=== PATIENT | male | born 1945 | race Caucasian/White ===

== ENCOUNTER 2021-03-05 08:39 | Day surgery (SDC) | payer MEDICARE, BC ==
[2021-02-26 14:16] LABS: BASOPHILS # (AUTO) 0.1 X10'3 (0-0.2); BASOPHILS % (AUTO) 0.5 % (0-1); EOSINOPHILS % (AUTO) 0.4 % (0-6); LYMPHOCYTES # (AUTO) 1.2 X10'3 (1.1-4.8); LYMPHOCYTES % (AUTO) 12.3 % (21-51); MEAN CORPUSCULAR HEMOGLOBIN 30.1 PG (27.0-31.0); MEAN CORPUSCULAR HGB CONC 33.7 g/dL (33.0-36.5); MEAN CORPUSCULAR VOLUME 89.5 FL (78-98); MEAN PLATELET VOLUME 7.6 FL (7.4-10.4); MONOCYTES # (AUTO) 0.5 X10'3 (0-0.9); MONOCYTES % (AUTO) 4.9 % (2-12); NEUTROPHILS # (AUTO) 7.9 X10'3 (1.8-7.7); NEUTROPHILS % (AUTO) 81.9 % (42-75); PRE OP HEMOGLOBIN 14.5 g/dL (14.0-17.9); PRE OP PLATELET COUNT 223 X10'3 (140-440); RED CELL DISTRIBUTION WIDTH 13.7 % (11.5-14.5)
[2021-02-26 14:32] LABS: ALBUMIN 4.2 G/DL (3.4-5.0); ALBUMIN/GLOBULIN RATIO 1.8 (1.1-1.5); ALKALINE PHOSPHATASE 70 IU/L (46-116); BLOOD UREA NITROGEN 14 MG/DL (7-18); BUN/CREATININE RATIO 16.5 (5.4-32.0); CHLORIDE 106 MMOL/L (99-107); CREATININE 0.85 MG/DL (0.60-1.10); PRE OP ALT 16 U/L (30-65); PRE OP ANION GAP 9 (8-16); PRE OP AST 15 U/L (10-37); PRE OP BILIRUB, TOTAL 0.9 MG/DL (0.0-1.0); PRE OP GLUCOSE 82 MG/DL (70-104); PRE OP POTASSIUM 4.1 MMOL/L (3.4-5.1); PRE OP SODIUM 142 MMOL/L (135-145); TOTAL CARBON DIOXIDE 26.8 MMOL/L (24-32); TOTAL PROTEIN 6.5 G/DL (6.4-8.2); eGFR 88 ML/MIN
[~2021-03-05] VITALS: Ht 182.9 cm; Wt 91.7 kg
[2021-03-05] VITALS (8 sets, daily range): BP systolic 110–139; BP diastolic 66–84
[2021-03-05] MEDS: ringers solution, lacted 1,000 ML IV SCH ×2 (05:00→09:10)
[~2021-03-05 08:39] MED LIST: ASPI-1071 PO; BUPIVAcaine/PF 2.5mg/ml (0.25%) 10ml vial ONE; FLEC50TA PO; LACT1CAP65 PO; LIDOcaine 1% 30ml preserv. free vial ONE; MAGN100T5 PO; METO-395 PO; cefazolin/dext.iso 2gm/100ml IV ONE; famotidine 20mg tablet PO ONE
[2021-03-05] MEDS ORDERED: ASPI-1264 PO (09:03)
[2021-03-05] MEDS ORDERED: LIDOcaine 1% 30ml preserv. free vial ONE (14:05)
[2021-03-05] MEDS ORDERED: BUPIVAcaine 0.5% inj/PF 30 ML ONE (14:05)
[2021-03-05] MEDS ORDERED: acetaminophen 1000 MG/100ml vial IV ONE (14:49)
[2021-03-05] MEDS ORDERED: sevoflurane 250ml liquid IH ONE (14:49)
[2021-03-05] MEDS ORDERED: fentaNYL/PF 50MCG/1 ML 2ML syringe ONE (14:54)
[2021-03-05] MEDS ORDERED: glycopyrrolate 0.2mg/ml inj ONE (15:14)
[2021-03-05] MEDS ORDERED: neostigmine methylsulfate 1 MG/ML 10ml vial ONE (15:14)
[2021-03-05] MEDS ORDERED: LIDOcaine 2% (20mg/ml) 5ml vial ONE (15:14)
[2021-03-05] MEDS ORDERED: propofol inj 20 ML IV ONE (15:14)
[2021-03-05] MEDS ORDERED: dexamethasone sod phosphate 4mg/ml inj. ONE (15:14)
[2021-03-05] MEDS ORDERED: ondansetron/PF 4mg/2ml inj ONE (15:14)
[2021-03-05] MEDS ORDERED: rocuronium 10mg/ml inj IV ONE (15:14)
--- NOTE | 2021-03-05 15:58 | NUR ---
Received from OR via , accompanied by Anesthesiologist DR PEDROZA and report given by Anesthesiolgist. AWAKENS TO VOICE. VITALS STABLE. DRESSINGS DI. CARLEEN PAIN. ABD SOFT.
[2021-03-05] MEDS ORDERED: HYDROcodone/acetaminophen 5mg/325mg tablet PO PRN (16:10)
[2021-03-05] MEDS ORDERED: ondansetron/PF 4mg/2ml inj IV PRN (16:15)
[2021-03-05] MEDS ORDERED: morphine 2 MG/ML inj. syringe IV PRN (16:15)
[2021-03-05] MEDS ORDERED: HYDROmorphone/PF 0.2 MG/ML SYRINGE IV PRN ×2 (16:15)
[2021-03-05] MEDS ORDERED: ringers solution, lacted 1,000 ML IV SCH (16:15)
[2021-03-05] MEDS ORDERED: LIDOcaine 2% 10ml TOPICAL JELLY (Urojet) MM ONE (18:20)
--- NOTE | 2021-03-05 18:30 | NUR ---
16 FR TA PLACED WITHOUT DIFFICULTY. CLEAR URINE RETURN. BALOON INFLATED WITH 10CC STERIL WATER.
--- NOTE | 2021-03-05 18:58 | NUR ---
AWAKE AND ORIENTED. VITALS STABLE. DRESSINGS DI. CARLEEN PAIN. HOME WITH HIS AT THIS TIME.
== END 2021-03-05 18:58 | disposition home or self-care (01) ==
LOC: PAS 08:39
PROVIDERS: ATTEND Surgery
DX: K40.90 Unilateral inguinal hernia, without obstruction or gangrene, not specified as recurrent (principal); I48.91 Unspecified atrial fibrillation; Z79.82 Long term (current) use of aspirin; Z87.891 Personal history of nicotine dependence; Z79.899 Other long term (current) drug therapy; Z20.822 Contact with and (suspected) exposure to COVID-19; Z98.890 Other specified postprocedural states; Z85.828 Personal history of other malignant neoplasm of skin
CPT/HCPCS: 36415; 49650; 80053; 82948; 85025; C1781; J0131; J1100; J2001; J2405; J2704; J2710; J3010; J3490; U0003; U0005; Z7506; Z7508; Z7512; A4215; A4618; J7120

== ENCOUNTER 2021-11-07 08:57 | Day surgery (SDC) | payer MEDICARE, BC ==
[2021-10-31 10:53] LABS: BASOPHILS % (AUTO) 0.4 % (0-1); EOSINOPHILS % (AUTO) 0.6 % (0-6); LYMPHOCYTES # (AUTO) 1.5 X10'3 (1.1-4.8); LYMPHOCYTES % (AUTO) 17.5 % (21-51); MEAN CORPUSCULAR HEMOGLOBIN 30.1 PG (27.0-31.0); MEAN CORPUSCULAR HGB CONC 33.8 g/dL (33.0-36.5); MEAN CORPUSCULAR VOLUME 89.1 FL (78-98); MEAN PLATELET VOLUME 7.8 FL (7.4-10.4); MONOCYTES # (AUTO) 0.5 X10'3 (0-0.9); MONOCYTES % (AUTO) 5.7 % (2-12); NEUTROPHILS # (AUTO) 6.3 X10'3 (1.8-7.7); NEUTROPHILS % (AUTO) 75.8 % (42-75); PRE OP HEMATOCRIT 43.8 % (42.0-52.0); PRE OP HEMOGLOBIN 14.8 g/dL (14.0-17.9); PRE OP PLATELET COUNT 214 X10'3 (140-440); RED BLOOD COUNT 4.92 X10'6 (4.70-6.10); RED CELL DISTRIBUTION WIDTH 13.8 % (11.5-14.5)
[2021-10-31 11:09] LABS: ALBUMIN 4.2 G/DL (3.4-5.0); ALBUMIN/GLOBULIN RATIO 1.6 (1.1-1.5); ALKALINE PHOSPHATASE 61 IU/L (46-116); BLOOD UREA NITROGEN 16 MG/DL (7-18); BUN/CREATININE RATIO 17.6 (5.4-32.0); CALCIUM 8.8 MG/DL (8.5-10.1); CHLORIDE 104 MMOL/L (99-107); CREATININE 0.91 MG/DL (0.60-1.10); PRE OP ALT 17 U/L (30-65); PRE OP ANION GAP 5 (8-16); PRE OP AST 15 U/L (10-37); PRE OP BILIRUB, TOTAL 1.1 MG/DL (0.0-1.0); PRE OP GLUCOSE 86 MG/DL (70-104); PRE OP POTASSIUM 4.8 MMOL/L (3.4-5.1); PRE OP SODIUM 139 MMOL/L (135-145); TOTAL CARBON DIOXIDE 29.6 MMOL/L (24-32); TOTAL PROTEIN 6.9 G/DL (6.4-8.2); eGFR 81 ML/MIN
[~2021-11-07] VITALS: Ht 182.9 cm; Wt 94.5 kg
[2021-11-07] VITALS (13 sets, daily range): BP systolic 97–156; BP diastolic 62–90
[~2021-11-07 08:57] MED LIST changes: -ASPI-1071 PO; +BUPIVAcaine 0.5% inj/PF 0 ML ONE; -BUPIVAcaine/PF 2.5mg/ml (0.25%) 10ml vial ONE; -FLEC50TA PO; +IBUP-1984 PO; -METO-395 PO; +ceFAZolin inj. 2,000 MG in dextrose 5%-water 100 ML IV ONE; -cefazolin/dext.iso 2gm/100ml IV ONE; +ringers solution, lacted 1,000 ML IV SCH
[2021-11-07] MEDS ORDERED: BUPIVAcaine 0.5% inj/PF 30 ML ONE ×3 (10:14→10:54)
[2021-11-07] MEDS ORDERED: LIDOcaine 1% 30ml preserv. free vial ONE (10:14)
[2021-11-07] MEDS ORDERED: ringers solution, lacted 1,000 ML IV SCH (10:50)
[2021-11-07] MEDS ORDERED: morphine 4 MG/ML inj SYRINge IV PRN (10:50)
[2021-11-07] MEDS ORDERED: morphine 2 MG/ML inj. syringe IV PRN (10:50)
[2021-11-07] MEDS ORDERED: fentaNYL/PF 50MCG/1 ML 2ML syringe IV PRN ×2 (10:50)
[2021-11-07] MEDS ORDERED: ondansetron/PF 4mg/2ml inj IV PRN (10:50)
[2021-11-07] MEDS ORDERED: hydrALAZINE 20mg/ml inj. IV PRN (10:50)
[2021-11-07] MEDS ORDERED: labetalol 20mg/4ml (5mg/ml) syringe IV PRN (10:50)
[2021-11-07] MEDS ORDERED: glycopyrrolate 0.2mg/ml inj ONE (10:55)
[2021-11-07] MEDS ORDERED: neostigmine methylsulfate 1 MG/ML 10ml vial ONE (10:55)
[2021-11-07] MEDS ORDERED: dexamethasone sod phosphate 10mg/ml inj ONE (10:55)
[2021-11-07] MEDS ORDERED: sevoflurane 250ml liquid IH ONE (10:55)
[2021-11-07] MEDS ORDERED: midazolam 1 mg/ML 2ml injection ONE (11:00)
[2021-11-07] MEDS ORDERED: fentaNYL/PF 50MCG/1 ML 2ML syringe ONE (11:00)
[2021-11-07] MEDS ORDERED: propofol inj 20 ML IV ONE (11:01)
[2021-11-07] MEDS ORDERED: LIDOcaine 2% (20mg/ml) 5ml vial ONE (11:01)
[2021-11-07] MEDS ORDERED: ondansetron/PF 4mg/2ml inj ONE (11:01)
[2021-11-07] MEDS ORDERED: rocuronium 10mg/ml inj IV ONE (11:01)
[2021-11-07] MEDS ORDERED: BUPIVAcaine 0.5% inj/PF 30 ml vial IJ ONE (11:16)
--- NOTE | 2021-11-07 12:05 | NUR ---
Received from OR via [facility] , accompanied by Anesthesiologist RAMSES and report given by Anesthesiolgist. 3 ABODOMINAL BANDAGES,CDI, STATES PAIN IS 2/10 ABDOMEN, 10 lITER MASK, SATS 100%, VITAL SIGNS STABLE, 20G PIV STEVE ACE LR AT 200 Addendum: 11/07/21 at 1223 by Thuan Diaz RN, RN Amended: Links added.
[2021-11-07] MEDS ORDERED: HYDROcodone/acetaminophen 5mg/325mg tablet PO PRN (12:15)
--- NOTE | 2021-11-07 13:10 | NUR ---
VOIDED. 210 RESIDUAL VOLUME VIA BLADDER SCAN. Addendum: 11/07/21 at 1346 by Thuan Diaz RN, RN Amended: Links added.
--- NOTE | 2021-11-07 14:11 | NUR ---
ALL DISCHARGE CRITERIA HAS BEEN MET. VSS, PAIN AT A TOLERABLE LEVEL, VOIDING AND ABLE TO SAFELY AMBULATE AND TRANSFER SELF. IV TAKEN OUT WITHOUT ANY COMPLICATIONS. ALL DISCHARGE INSTRUCTIONS COVERED WITH PATIENT AND ALL QUESTIONS ANSWERED. PATIENT TAKEN OUT VIA WHEELCHAIR TO PERSONAL VEHICLE WHERE FAMILY/FRIEND DROVE PATIENT HOME. OKAY WITH DC HOME. BLADDER SCAN POST VOID OF 206 ML. STILL AWARE AND OKAY WITH DC HOME. Addendum: 11/07/21 at 1453 by Thuan Mittal - [facility] Amended: Links added.
== END 2021-11-07 14:15 | disposition home or self-care (01) ==
LOC: PAS 08:57
PROVIDERS: ATTEND Surgery
DX: K40.90 Unilateral inguinal hernia, without obstruction or gangrene, not specified as recurrent (principal); I48.20 Chronic atrial fibrillation, unspecified; Z20.822 Contact with and (suspected) exposure to COVID-19; Z79.899 Other long term (current) drug therapy; Z79.82 Long term (current) use of aspirin; Z87.891 Personal history of nicotine dependence; Z98.890 Other specified postprocedural states; Z85.828 Personal history of other malignant neoplasm of skin; Z82.49 Family history of ischemic heart disease and other diseases of the circulatory system
CPT/HCPCS: 36415; 49650; 80053; 82948; 85025; C1781; J0690; J1100; J2250; J2405; J2704; J2710; J3010; J3490; J7030; J7060; J7120; S0020; U0003; U0005; Z7506; Z7508; Z7512; A4215; A4618

== ENCOUNTER 2023-08-08 20:31 | Observation (INO) | payer MEDICARE, BC ==
[~2023-08-08] VITALS: Ht 182.9 cm; Wt 93.1 kg
[~2023-08-08 20:31] MED LIST changes: -BUPIVAcaine 0.5% inj/PF 0 ML ONE; -LIDOcaine 1% 30ml preserv. free vial ONE; -ceFAZolin inj. 2,000 MG in dextrose 5%-water 100 ML IV ONE; -famotidine 20mg tablet PO ONE; -ringers solution, lacted 1,000 ML IV SCH
[2023-08-08 21:11] LABS: BASOPHILS # (AUTO) 0.1 X10'3 (0-0.2); EOSINOPHILS # (AUTO) 0.1 X10'3 (0-0.9); EOSINOPHILS % (AUTO) 0.9 % (0-6); HEMATOCRIT 41.8 % (42.0-52.0); HEMOGLOBIN 14.4 g/dl (14.0-17.9); LYMPHOCYTES # (AUTO) 1.8 X10'3 (1.1-4.8); LYMPHOCYTES % (AUTO) 22.8 % (21-51); MEAN CORPUSCULAR HEMOGLOBIN 30.8 PG (27.0-31.0); MEAN CORPUSCULAR HGB CONC 34.3 g/dL (33.0-36.5); MEAN CORPUSCULAR VOLUME 89.7 FL (78-98); MONOCYTES # (AUTO) 0.6 X10'3 (0-0.9); MONOCYTES % (AUTO) 7.7 % (2-12); NEUTROPHILS # (AUTO) 5.4 X10'3 (1.8-7.7); NEUTROPHILS % (AUTO) 67.6 % (42-75); PLATELET COUNT 206 X10'3 (140-440); RED BLOOD COUNT 4.66 X10'6 (4.70-6.10); WHITE BLOOD COUNT 7.9 X10'3 (4.5-11.0)
[2023-08-08 21:32] LABS: ALANINE AMINOTRANSFERASE 29 U/L (12-78); ALBUMIN 4.3 G/DL (3.4-5.0); ALBUMIN/GLOBULIN RATIO 1.6 (1.1-1.5); ALKALINE PHOSPHATASE 64 IU/L (46-116); ANION GAP 8 (8-16); ASPARTATE AMINO TRANSFERASE 19 U/L (10-37); BILIRUBIN,TOTAL 0.6 MG/DL (0.1-1.0); BLOOD UREA NITROGEN 13 MG/DL (7-18); BUN/CREATININE RATIO 14.6 (10.0-20.0); CALCIUM 8.6 MG/DL (8.5-10.1); CHLORIDE 102 MMOL/L (99-107); CREATININE 0.89 MG/DL (0.60-1.10); GLUCOSE 124 MG/DL (70-104); POTASSIUM 3.8 MMOL/L (3.5-5.1); SODIUM 138 MMOL/L (135-145); eCRCL 76 ML/MIN; eGFR 83 ML/MIN
[2023-08-08 21:39] LABS: MAGNESIUM 2.1 MG/DL (1.5-2.4); PRO BRAIN NATRIURETIC PEPTIDE 173 PG/ML (0-450)
[2023-08-08] MEDS ORDERED: normal saline 1000ML IV soln IVB ONE (22:25)
[2023-08-08] MEDS ORDERED: metoprolol tartrate 50mg tablet PO ONE (22:25)
[2023-08-08] MEDS: metoprolol tartrate 1mg/ml inj IV SCH ×3 (22:32→22:55)
[2023-08-08] MEDS ORDERED: potassium Cl 20 mEq SR tablet PO PRN ×2 (23:40)
[2023-08-08] MEDS ORDERED: PERFLUTREN PROTEIN-A MICROSPHR (Optison) 0.22 MG/ML 3ML VIAL IV PRN (23:40)
[2023-08-08] MEDS ORDERED: magnesium Cl slow-release 64mg tablet PO PRN (23:40)
[2023-08-08] MEDS ORDERED: ondansetron/PF 4mg/2ml inj IV PRN (23:40)
[2023-08-08] MEDS ORDERED: magnesium 2GM in 50ml NS 50 ML IV PRN (23:40)
[2023-08-08] MEDS ORDERED: magnesium 4gm in 100ml NS 100 ML IV PRN (23:40)
[2023-08-08] MEDS ORDERED: potassium Cl 40MEQ/1/2NS 520ml 520 ML IV PRN (23:40)
[2023-08-08] MEDS ORDERED: acetaminophen 325mg tablet PO PRN (23:40)
[2023-08-08] MEDS ORDERED: diltiazem 5mg/ml 5ml inj. IV PRN (23:45)
[2023-08-09 03:11] LABS: BASOPHILS % (AUTO) 0.6 % (0-1); EOSINOPHILS % (AUTO) 0.6 % (0-6); HEMATOCRIT 39.8 % (42.0-52.0); HEMOGLOBIN 13.5 g/dl (14.0-17.9); LYMPHOCYTES # (AUTO) 1.5 X10'3 (1.1-4.8); LYMPHOCYTES % (AUTO) 21.3 % (21-51); MEAN CORPUSCULAR HEMOGLOBIN 30.2 PG (27.0-31.0); MEAN CORPUSCULAR HGB CONC 33.9 g/dL (33.0-36.5); MEAN CORPUSCULAR VOLUME 89.2 FL (78-98); MEAN PLATELET VOLUME 8.1 FL (7.4-10.4); MONOCYTES # (AUTO) 0.5 X10'3 (0-0.9); MONOCYTES % (AUTO) 6.6 % (2-12); NEUTROPHILS # (AUTO) 4.9 X10'3 (1.8-7.7); NEUTROPHILS % (AUTO) 70.9 % (42-75); PLATELET COUNT 201 X10'3 (140-440); RED BLOOD COUNT 4.46 X10'6 (4.70-6.10); RED CELL DISTRIBUTION WIDTH 13.8 % (11.5-14.5); WHITE BLOOD COUNT 6.9 X10'3 (4.5-11.0)
[2023-08-09 03:23] LABS: ALBUMIN 3.6 G/DL (3.4-5.0); ANION GAP 6 (8-16); BLOOD UREA NITROGEN 11 MG/DL (7-18); BUN/CREATININE RATIO 12.6 (10.0-20.0); CALCIUM 8.3 MG/DL (8.5-10.1); CHLORIDE 107 MMOL/L (99-107); CREATININE 0.87 MG/DL (0.60-1.10); GLUCOSE 97 MG/DL (70-104); MAGNESIUM 2.1 MG/DL (1.5-2.4); POTASSIUM 4.6 MMOL/L (3.5-5.1); SODIUM 140 MMOL/L (135-145); eCRCL 78 ML/MIN; eGFR 85 ML/MIN
[2023-08-09 03:30] VITALS: BP 116/75; PULSE 77; RESP 16; TEMP 97.8; O2SAT 98
[2023-08-09 03:58] VITALS: RESP 16; O2SAT 98
[2023-08-09 04:02] VITALS: RESP 16; O2SAT 98
[2023-08-09 06:00] VITALS: BP 112/70; PULSE 68; RESP 20; TEMP 97.8; O2SAT 95
[2023-08-09 08:00] VITALS: RESP 20; O2SAT 95
[2023-08-09] MEDS ORDERED: K and/or MAG REPLACEMENT MC SCH (08:00)
[2023-08-09] MEDS ORDERED: metoprolol succinate 25mg (24-HOUR) SR. Tablet PO SCH (08:05)
[2023-08-09] MEDS ORDERED: METO50TA16 PO (09:59)
== END 2023-08-09 10:36 | disposition home or self-care (01) ==
LOC: ER 20:32 → ED HOLD 23:40 → PCU 3S 08-09 03:05
PROVIDERS: ADMIT Internal Medicine; ATTEND Family Medicine
DX: I48.20 Chronic atrial fibrillation, unspecified (principal); I44.7 Left bundle-branch block, unspecified; I47.10 Supraventricular tachycardia, unspecified; I71.9 Aortic aneurysm of unspecified site, without rupture; Z79.899 Other long term (current) drug therapy; Z86.73 Personal history of transient ischemic attack (TIA), and cerebral infarction without residual deficits
CPT/HCPCS: 36415; 71045; 80048; 80053; 83735; 83880; 84484; 85025; 93005; 93306; 96374; 99285; G0378; J3490; J7030

== ENCOUNTER 2023-09-30 12:16 | Emergency (ER) | payer MEDICARE, BC ==
[~2023-09-30] VITALS: Ht 182.9 cm; Wt 93.2 kg
[~2023-09-30 12:16] MED LIST changes: +METO50TA16 PO
[2023-09-30 12:31] VITALS: BP 174/66; PULSE 91; RESP 18; TEMP 98; O2SAT 98
== END 2023-09-30 17:16 | disposition left against medical advice (07) ==
LOC: ER 12:17
DX: R33.9 Retention of urine, unspecified (principal); Z53.21 Procedure and treatment not carried out due to patient leaving prior to being seen by health care provider
CPT/HCPCS: 99281